=== PATIENT | male | born 1960 | race Caucasian/White ===

== ENCOUNTER 2018-04-15 18:12 | Inpatient (IN) | payer MEDICARE ==
[2018-04-15 18:21] VITALS: BMI 18.9
--- NOTE | 2018-04-15 18:29 | C.PDOC ---
History Of Present Illness 57 y/o male, with history of hyperlipidemia and hyperthyroidism, transferred from [facility] for psychiatric admission. Patient states he was diagnosed with schizophrenia. Patient admits to hearing voices and suicidal ideation. Patient is going through life stressors and denies drug abuse, alcohol abuse, smoking, and no medical problems. <Jc Castillo Jr. - Last Filed: 04/15/18 18:49> <Sierra Sims - Last Filed: 04/15/18 18:27> History Per: Patient History/Exam Limitations: no limitations Onset/Duration Of Symptoms: Days Current Symptoms Are (Timing): Still Present <Jc Castillo Jr. - Last Filed: 04/15/18 18:49> Time Seen by Provider: 04/15/18 18:27 Chief Complaint (Nursing): Psychiatric Evaluation Past Medical History Vital Signs: Last Vital Signs Temp 98.8 F 04/15/18 18:17 Pulse 103 H 04/15/18 18:17 Resp 20 04/15/18 18:17 BP 154/95 H 04/15/18 18:17 Pulse Ox 99 04/15/18 18:17 - Medical History PMH: Anxiety, Depression, Hypercholesterolemia (takes lipitor), Hypothyroidism (takes levothyroxine 50 mcg daily), Schizophrenia Denies: Alzheimer's Disease, Anemia, Arthritis, Asthma, Bipolar Disorder, Bronchitis, Cardia Arrhythmia, CHF, COPD, Crohn's Disease, Dementia, Diverticulitis, Emphysema, Fibromyalgia, Fractures, Gastrointestinal Ulcer, Gall Bladder Disease, HIV, HTN, Hyperthyroidism, Kidney Stones, Migraine, Mitral Valve Prolapse, Osteoporosis, Pancreatitis, Paranoia, Parkinson's Disease, Peripheral Edema, Pneumonia, Post Traumatic Stress Disorder, Chronic Kidney Disease, Seizures, Sickle Cell Disease, Sexually Transmitted Disease, Sleep Apnea, TIA Surgical History: Denies: Appendectomy, Cholecystectomy, Coronary Stent, Pacemaker - [facility] Procedures COLONOSCOPY (08/02/13) GROUP PSYCHOTHERAPY (05/31/16) INDIVIDUAL PSYCHOTHERAPY, SUPPORTIVE (05/31/16) PSYCHIAT DRUG THERAP NEC (07/16/13) Family History: States: Unknown Family Hx - Social History Hx Alcohol Use: No Hx Substance Use: No - Immunization History Hx Tetanus Toxoid Vaccination: Yes Hx Influenza Vaccination: Yes Hx Pneumococcal Vaccination: Yes <Sierra Sims - Last Filed: 04/15/18 18:27> Reviewed: Historical Data, Nursing Documentation, Vital Signs Vital Signs: Last Vital Signs Temp 98.8 F 04/15/18 18:17 Pulse 103 H 04/15/18 18:17 Resp 20 04/15/18 18:17 BP 154/95 H 04/15/18 18:17 Pulse Ox 99 04/15/18 18:29 - [facility] Procedures COLONOSCOPY (08/02/13) GROUP PSYCHOTHERAPY (05/31/16) INDIVIDUAL PSYCHOTHERAPY, SUPPORTIVE (05/31/16) PSYCHIAT DRUG THERAP NEC (07/16/13) Family History: States: No Known Family Hx <Jc Castillo Jr. - Last Filed: 04/15/18 18:49> Review Of Systems Constitutional: Negative for: Fever, Chills Musculoskeletal: Positive for: Neck Pain (neck spasms) Psych: Positive for: Suicidal ideation <Jc Castillo Jr. - Last Filed: 04/15/18 18:49> Physical Exam - Physical Exam Appears: No Acute Distress, Other (Cooperative but tonic) Skin: Warm, Dry Head: Atraumatic, Normacephalic Eye(s): bilateral: Normal Inspection, PERRL, EOMI Oral Mucosa: Moist Neck: Other (Neck spasms) Chest: Symmetrical Cardiovascular: Rhythm Regular, No Murmur Respiratory: Normal Breath Sounds, No Rales, No Rhonchi, No Wheezing Gastrointestinal/Abdominal: Soft, No Tenderness Extremity: Bilateral: Atraumatic, Normal Color And Temperature, Normal ROM Neurological/Psych: Oriented x3 Gait: Steady <Jc Castillo Jr. - Last Filed: 04/15/18 18:49> ED Course And Treatment O2 Sat by Pulse Oximetry: 99 <Sierra Sims - Last Filed: 04/15/18 18:27> O2 Sat by Pulse Oximetry: 99 (RA) Pulse Ox Interpretation: Normal <Jc Castillo Jr. - Last Filed: 04/15/18 18:49> Medical Decision Making Medical Decision Making: Plan: --Ativan <Jc Castillo Jr. - Last Filed: 04/15/18 18:49> Disposition - Disposition Disposition Time: 18:28 - POA Present On Arrival: None <Sierra Sims - Last Filed: 04/15/18 18:27> <Jc Castillo Jr. - Last Filed: 04/15/18 18:49> - Disposition Disposition: HOSPITALIZED Condition: GUARDED - Clinical Impression Clinical Impression: Depression - Scribe Statement The provider has reviewed the documentation as recorded by the Jada Fontenot Provider Attestation: All medical record entries made by the Kaelynibe were at my direction and persona lly dictated by me. I have reviewed the chart and agree that the record accurately reflects my personal performance of the history, physical exam, medical decision making, and the department course for this patient. I have also personally directed, reviewed, and agree with the discharge instructions and disposition. <Jc Castillo Jr. - Last Filed: 04/15/18 18:49> Decision To Admit - Pt Status Changed To: Hospital Disposition Of: Inpatient - Admit Certification Admit to Inpatient:: After my assessment, the patient will require hospitalization for at least two midnights. This is because of the severity of symptoms shown, intensity of services needed, and/or the medical risk in this patient being treated as an outpatient. - InPatient: Physician Admission Certification: I certify that this patient requires 2 or more midnights of care for the following reason:: depression - . Bed Request Type: Psychiatry <Sierra Sims - Last Filed: 04/15/18 18:27> <Jc Castillo Jr. - Last Filed: 04/15/18 18:49> - . Patient Diagnosis: Depression
--- NOTE | 2018-04-15 18:54 | C.PDOC ---
History Of Present Illness 57 y/o male, with history of hyperlipidemia and hyperthyroidism, transferred from [facility] for psychiatric admission. Patient states he was diagnosed with schizophrenia. Patient admits to hearing voices and suicidal ideation. Patient is going through life stressors and denies drug abuse, alcohol abuse, smoking, and no medical problems. Time Seen by Provider: 04/15/18 18:27 Chief Complaint (Nursing): Psychiatric Evaluation History Per: Patient History/Exam Limitations: no limitations Onset/Duration Of Symptoms: Days Current Symptoms Are (Timing): Still Present Past Medical History Reviewed: Historical Data, Nursing Documentation, Vital Signs Vital Signs: Last Vital Signs Temp 98.8 F 04/15/18 18:17 Pulse 103 H 04/15/18 18:17 Resp 20 04/15/18 18: BP 154/95 H 04/15/18 18: Pulse Ox 99 04/15/18 18:17 - Medical History PMH: Anxiety, Bipolar Disorder, Depression, Hypercholesterolemia (takes lipitor), Hypothyroidism (takes levothyroxine 50 mcg daily), Schizophrenia Denies: Alzheimer's Disease, Anemia, Arthritis, Asthma, Bronchitis, Cardia Arrhythmia, CHF, COPD, Crohn's Disease, Dementia, Diverticulitis, Emphysema, Fibromyalgia, Fractures, Gastrointestinal Ulcer, Gall Bladder Disease, HIV, HTN, Hyperthyroidism, Kidney Stones, Migraine, Mitral Valve Prolapse, Osteoporosis, Pancreatitis, Paranoia, Parkinson's Disease, Peripheral Edema, Pneumonia, Post Traumatic Stress Disorder, Chronic Kidney Disease, Seizures, Sickle Cell Disease, Sexually Transmitted Disease, Sleep Apnea, TIA Surgical History: Denies: Appendectomy, Cholecystectomy, Coronary Stent, Pacemaker - [facility] Procedures COLONOSCOPY (08/02/13) GROUP PSYCHOTHERAPY (05/31/16) INDIVIDUAL PSYCHOTHERAPY, SUPPORTIVE (05/31/16) PSYCHIAT DRUG THERAP NEC (07/16/13) Family History: States: No Known Family Hx - Social History Hx Alcohol Use: No Hx Substance Use: No - Immunization History Hx Tetanus Toxoid Vaccination: Yes Hx Influenza Vaccination: Yes Hx Pneumococcal Vaccination: Yes Review Of Systems Except As Marked, All Systems Reviewed And Found Negative. Constitutional: Negative for: Fever, Chills Musculoskeletal: Positive for: Other (Neck spasms) Psych: Positive for: Suicidal ideation Physical Exam - Physical Exam Appears: No Acute Distress, Other (Cooperative but tonic) Skin: Warm, Dry, No Rash Head: Atraumatic, Normacephalic Eye(s): bilateral: Normal Inspection, PERRL, EOMI Oral Mucosa: Moist Neck: Other (Neck spasms) Chest: Symmetrical Cardiovascular: Rhythm Regular, No Murmur Respiratory: Normal Breath Sounds, No Rales, No Rhonchi, No Wheezing Gastrointestinal/Abdominal: Soft, No Tenderness Extremity: Bilateral: Atraumatic, Normal Color And Temperature, Normal ROM Neurological/Psych: Oriented x3 ED Course And Treatment O2 Sat by Pulse Oximetry: 99 (RA) Pulse Ox Interpretation: Normal Medical Decision Making Medical Decision Making: Plan: --Ativan Disposition - Disposition Disposition: HOSPITALIZED Disposition Time: 19:05 Condition: GUARDED - Clinical Impression Clinical Impression: Depression - Scribe Statement The provider has reviewed the documentation as recorded by the Jada Fontenot Provider Attestation: All medical record entries made by the Kaelynibfritz were at my direction and personally dictated by me. I have reviewed the chart and agree that the record accurately reflects my personal performance of the history, physical exam, medical decision making, and the department course for this patient. I have also personally directed, reviewed, and agree with the discharge instructions and disposition.
--- NOTE | 2018-04-15 19:46 | PCM.BM ---
<Teresita Ramirez - Last Filed: 04/15/18 19:43> Treatment Plan Problems - Problems identified on initial assessmt Auditory Hallucinations Date Initiated: 04/15/18 Time Initiated: 19:44 Assessment reference: NA Status: Active dep Date Initiated: 04/15/18 Time Initiated: 19:44 Assessment reference: NA Status: Active Treatment assets and liabiliti Patient Assests: cooperative, insightful, ADL independent, negotiates basic needs, cognitively intact Patient Liabilities: live alone (lives alone), physical pain, poor support system, medical problems (Hypothryoidism, Colitis), auditory impairment - Milieu Protocol Maintain good personal hygiene: daily Encourage regular showers, daily Remind patient to perform daily oral care, daily Assist patient to perform ADL's Conduct patient checks and document Observation sheet: Q15 minutes Maintain personal safety: every shift Educate patient to report safety concerns to staff, every shift Monitor environment for contraband/sharps Medication safety: Monitor for expected outcome, potential side effects: every shift, Assess barriers to learning: every shift, Assess readiness for medication education: every shift <Ann Poe - Last Filed: 04/16/18 12:27> Family Contact Family involvement: Patient does not wish Family/SO involvement Family contact: Patient declines to allow family contact at present - Goals for Treatment Patient goals for treatment: "I want to return to my private psychiatrist." Discharge/Continuing Care - Education Needs Education Needs: Patient Medication, Patient Diagnosis/Disease Process, Patient Coping Skills - Discharge Discharge Criteria: Free of Suicidal thoughts, Normal sleep pattern, Ability to care for self, Reduction of target symptoms Discharge to:: Home - Treatment Team Participation Discussed with Family/SO: No Was Patient/Family/SO present at Treatment Team Meeting: Yes <Elma Orellana - Last Filed: 04/16/18 12:42> - Diagnosis (1) Schizophrenia Status: Acute Interventions: 04/16/18 12:42 * Assess/adjust medications daily and /or as needed * See patient on an individual basis 7x/week to assess status of hallucinations * Discuss risks, benefits, side effects and alternatives of medications *
[2018-04-16] MEDS: Naproxen 550 mg Tab PO SCH ×2 (06:49→19:24)
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
--- NOTE | 2018-04-16 10:11 | PCM.PSYCH ---
Initial Psychiatric Evaluation - Initial Psychiatric Evaluation Type of Admission: Voluntary Legal Status: Capacity Current Medications: Active Medications Generic Name Dose Route Start Last Admin Trade Name Mike PRN Reason Stop Dose Admin Naproxen 550 mg 04/16/18 07:00 04/16/18 06:49 Anaprox Ds PO 550 mg Q12H JASMINA Administration Trazodone HCl 300 mg 04/15/18 22:00 04/15/18 21:29 Desyrel PO 300 mg HS JASMINA Administration Past Psychiatric History - Past Psychiatric History Pertinent Medical Hx (Current Medical&Sleep Prob, Allergies): Allergies Allergy/AdvReac Type Severity Reaction Status Date / Time No Known Allergies Allergy Verified 04/15/18 18:17 Atorvastatin [Lipitor] 20 mg PO DAILY 05/31/16 Benztropine [Benztropine Mesylate] 0.5 mg PO BID 05/31/16 Levothyroxine [Synthroid] 50 mcg PO DAILY 05/31/16 Gabapentin [Neurontin] 300 mg PO TID #90 cap 06/10/16 Famotidine [Pepcid] 20 mg PO DAILY 04/15/18 LORazepam [Ativan] 1 mg PO TID 04/15/18 Mirtazapine [Remeron] 30 mg PO HS 04/15/18 Olanzapine [Zyprexa] 20 mg PO HS 04/15/18 Oxycodone HCl/Acetaminophen [Percocet 7.5-325 mg Tablet] 1 each PO DAILY 04/15/18 Polyethylene Glycol 3350 [Miralax] 17 gm PO Q6H 04/15/18 traZODone [trazODONE HYDROCHLORIDE] 50 mg PO DAILY 04/15/18
[2018-04-16] MEDS: Oxycodone/Acetaminophen 5/325 mg Tab PO PRN ×2 (10:21→16:17)
[2018-04-16] MEDS: Levothyroxine 50 MCG TAB PO SCH (10:40)
[2018-04-17] MEDS: Levothyroxine 50 MCG TAB PO SCH (06:30)
[2018-04-17] MEDS: Naproxen 550 mg Tab PO SCH ×2 (07:43→18:44)
[2018-04-17] MEDS: Oxycodone/Acetaminophen 5/325 mg Tab PO PRN ×2 (09:02→14:52)
--- NOTE | 2018-04-17 10:27 | PCM.PYCHPN ---
Psychiatric Progress Note - Psychiatric Progress Note Patient seen today, length of contact: 15 min Patient Chief Complaint: I was feeling depressed.' Problems Identified/Issues Discussed: Pt was seen and evaluated chart reviewed and discussed with the staff. Patient remained paranoid and depressed. He still reports feelings of hopelessness and helplessness. He still reports of hearing voices. And he still has abnormal movements of the neck. He is taking medication but denies any side effects. Symptoms are improving gradually and he needs to stay longer for further evaluation. Supportive therapy was given Medication Change: Yes Medical Record Reviewed: Yes Mental Status Examination - Cognitive Function Orientation: Person, Place, Situation, Time Memory: Intact Attention: WNL Concentration: Poor Association: WNL Fund of Knowledge: Poor - Mood Mood: Depressed, Anxious - Affect Affect: Constricted, Depressed - Formal Thought Process Formal Thought Process: Hallucinations, Delusions, Paranoia - Suicidal Ideation Suicidal Ideation: No - Homicidal Ideation Homicidal Ideation: No Goal/Treatment Plan - Goal/Treatment Plan Need for Continued Stay: Discharge may exacerbated symptoms, Severe functional impairment Progress Toward Problem(s) and Goals/Treatment Plan: Schizoaffective disorder depressive type -CBT -Psychoeducation -Supportive therapy, group therapy, individual therapy -Trazodone 300 mg p.o. nightly -Olanzapine 20 g p.o. nightly -Remeron 30 mg p.o. nightly -Neurontin 300 mg p.o. 3 times daily -Ativan 1 mg p.o. 3 times daily Tardive dyskinesia of the neck -Continue Ativan- -continue oxycodone as needed -Continue benztropine Hypothyroidism -Continue Synthroid
[2018-04-18] MEDS: Levothyroxine 50 MCG TAB PO SCH (06:33)
[2018-04-18] MEDS: Naproxen 550 mg Tab PO SCH ×3 (07:54→18:55)
[2018-04-18] MEDS: Oxycodone/Acetaminophen 5/325 mg Tab PO PRN ×2 (09:37→20:01)
--- NOTE | 2018-04-18 10:29 | PCM.PYCHPN ---
Psychiatric Progress Note - Psychiatric Progress Note Patient seen today, length of contact: 15 min Patient Chief Complaint: I was feeling depressed and hearing voices to harm myself.' Problems Identified/Issues Discussed: Pt was seen and evaluated chart reviewed and discussed with the staff. He still reports of hearing voices. And he still has abnormal movements of the neck. Patient remained paranoid and depressed. He still reports feelings of hopelessness and helplessness. He is taking medication but denies any side effects. Symptoms are improving gradually and he needs to stay longer for further evaluation. Supportive therapy was given Medication Change: Yes Medical Record Reviewed: Yes Mental Status Examination - Cognitive Function Orientation: Person, Place, Situation, Time Memory: Intact Attention: WNL Concentration: Poor Association: WNL Fund of Knowledge: Poor - Mood Mood: Depressed, Anxious - Affect Affect: Constricted, Depressed - Formal Thought Process Formal Thought Process: Hallucinations, Delusions, Paranoia - Suicidal Ideation Suicidal Ideation: No - Homicidal Ideation Homicidal Ideation: No Goal/Treatment Plan - Goal/Treatment Plan Need for Continued Stay: Discharge may exacerbated symptoms, Severe functional impairment Progress Toward Problem(s) and Goals/Treatment Plan: Schizoaffective disorder depressive type -CBT -Psychoeducation -Supportive therapy, group therapy, individual therapy -Trazodone 300 mg p.o. nightly -Olanzapine 20 g p.o. nightly -Remeron 30 mg p.o. nightly -Neurontin 300 mg p.o. 3 times daily -Ativan 1 mg p.o. 3 times daily Tardive dyskinesia of the neck -Continue Ativan- -continue oxycodone as needed -Continue benztropine Hypothyroidism -Continue Synthroid
[2018-04-19] MEDS: Levothyroxine 50 MCG TAB PO SCH (06:46)
[2018-04-19] MEDS: Naproxen 550 mg Tab PO SCH ×2 (07:57→19:55)
[2018-04-19] MEDS: Oxycodone/Acetaminophen 5/325 mg Tab PO PRN ×2 (09:53→18:00)
[2018-04-20] MEDS: Levothyroxine 50 MCG TAB PO SCH (06:06)
[2018-04-20] MEDS: Naproxen 550 mg Tab PO SCH ×2 (07:56→20:01)
[2018-04-21] MEDS: Levothyroxine 50 MCG TAB PO SCH (06:39)
[2018-04-21] MEDS: Naproxen 550 mg Tab PO SCH ×2 (08:00→19:04)
[2018-04-22] MEDS: Levothyroxine 50 MCG TAB PO SCH (06:39)
[2018-04-22] MEDS: Naproxen 550 mg Tab PO SCH ×2 (07:36→19:40)
[2018-04-23] MEDS: Levothyroxine 50 MCG TAB PO SCH (06:24)
[2018-04-23] MEDS: Naproxen 550 mg Tab PO SCH ×2 (07:41→18:10)
[2018-04-24 06:13] VITALS: O2SAT 97
[2018-04-24] MEDS: Levothyroxine 50 MCG TAB PO SCH (06:27)
[2018-04-24] MEDS: Naproxen 550 mg Tab PO SCH ×2 (08:00→18:50)
[2018-04-25] MEDS: Levothyroxine 50 MCG TAB PO SCH (06:25)
[2018-04-25 06:43] VITALS: RESP 18
[2018-04-25] MEDS: Naproxen 550 mg Tab PO SCH ×2 (08:28→21:33)
--- NOTE | 2018-04-26 00:59 | PCM.PYCHPN ---
Psychiatric Progress Note - Psychiatric Progress Note Patient seen today, length of contact: 15 min Patient Chief Complaint: I am feeling little depressed.' Problems Identified/Issues Discussed: Pt was seen and evaluated chart reviewed and discussed with the staff. Patient remained paranoid and depressed. He still reports feelings of hopelessness and helplessness. He still reports of hearing voices. And he still has abnormal movements of the neck. He is taking medication but denies any side effects. Symptoms are improving gradually and he needs to stay longer for further evaluation. Supportive therapy was given Medication Change: Yes Medical Record Reviewed: Yes Mental Status Examination - Cognitive Function Orientation: Person, Place, Situation, Time Memory: Intact Attention: WNL Concentration: Poor Association: WNL Fund of Knowledge: Poor - Mood Mood: Depressed, Anxious - Affect Affect: Constricted, Depressed - Formal Thought Process Formal Thought Process: Hallucinations, Delusions, Paranoia - Suicidal Ideation Suicidal Ideation: No - Homicidal Ideation Homicidal Ideation: No Goal/Treatment Plan - Goal/Treatment Plan Need for Continued Stay: Discharge may exacerbated symptoms, Severe functional impairment Progress Toward Problem(s) and Goals/Treatment Plan: Schizoaffective disorder depressive type -CBT -Psychoeducation -Supportive therapy, group therapy, individual therapy -Trazodone 300 mg p.o. nightly -Olanzapine 20 g p.o. nightly -Remeron 30 mg p.o. nightly -Neurontin 300 mg p.o. 3 times daily -Ativan 1 mg p.o. 3 times daily Tardive dyskinesia of the neck -Continue Ativan- -continue oxycodone as needed -Continue benztropine Hypothyroidism -Continue Synthroid
[2018-04-26] MEDS: Levothyroxine 50 MCG TAB PO SCH (06:10)
[2018-04-26 06:29] VITALS: BP 117/82; PULSE 75; TEMP 97.5
[2018-04-26] MEDS: Naproxen 550 mg Tab PO SCH (07:51)
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
== END 2018-04-26 12:50 | disposition home or self-care (01) | DRG 885 ==
LOC: C.ER 18:12 → C.5E 18:29
PROC: GZ3ZZZZ Medication Management (ICD-10-PCS; principal; 2018-04-15)
PROC: GZHZZZZ Group Psychotherapy (ICD-10-PCS; 2018-04-15)
PROC: GZ56ZZZ Individual Psychotherapy, Supportive (ICD-10-PCS; 2018-04-15)
DX: F25.1 Schizoaffective disorder, depressive type (principal); R45.851 Suicidal ideations; R44.0 Auditory hallucinations; G24.01 Drug induced subacute dyskinesia; F31.9 Bipolar disorder, unspecified; F41.9 Anxiety disorder, unspecified; E03.9 Hypothyroidism, unspecified; E78.5 Hyperlipidemia, unspecified; E78.00 Pure hypercholesterolemia, unspecified; Z79.890 Hormone replacement therapy

== ENCOUNTER 2018-05-14 00:40 | Inpatient (IN) | payer MEDICARE ==
[2018-05-14 00:40] VITALS: BMI 18.9
--- NOTE | 2018-05-14 00:59 | C.PDOC ---
History Of Present Illness 57 y/o male arrives to the ED via EMS, transferred from [facility] for psychiatric admission. Patient was already evaluated and medically cleared at [facility]. On arrival, he offers no additional complaints. Time Seen by Provider: 05/14/18 00:57 Chief Complaint (Nursing): Psychiatric Evaluation History Per: Patient History/Exam Limitations: no limitations Onset/Duration Of Symptoms: Days Current Symptoms Are (Timing): Still Present Past Medical History Reviewed: Historical Data, Nursing Documentation, Vital Signs Vital Signs: Last Vital Signs Temp 97.9 F 05/14/18 00:44 Pulse 99 H 05/14/18 00:44 Resp 18 05/14/18 00:44 BP 90/60 L 05/14/18 00:44 Pulse Ox 99 05/14/18 00:44 - Medical History PMH: Anxiety, Bipolar Disorder, Depression, Hypercholesterolemia (takes lipitor), Hypothyroidism (takes levothyroxine 50 mcg daily), Schizophrenia Denies: Alzheimer's Disease, Anemia, Arthritis, Asthma, Bronchitis, Cardia Arrhythmia, CHF, COPD, Crohn's Disease, Dementia, Diverticulitis, Emphysema, Fibromyalgia, Fractures, Gastrointestinal Ulcer, Gall Bladder Disease, HIV, HTN, Hyperthyroidism, Kidney Stones, Migraine, Mitral Valve Prolapse, Osteoporosis, Pancreatitis, Paranoia, Parkinson's Disease, Peripheral Edema, Pneumonia, Post Traumatic Stress Disorder, Chronic Kidney Disease, Seizures, Sickle Cell Disease, Sexually Transmitted Disease, Sleep Apnea, TIA Surgical History: Denies: Appendectomy, Cholecystectomy, Coronary Stent, Pacemaker - [facility] Procedures COLONOSCOPY (08/02/13) GROUP PSYCHOTHERAPY (04/15/18) INDIVIDUAL PSYCHOTHERAPY, SUPPORTIVE (04/15/18) MEDICATION MANAGEMENT (04/15/18) PSYCHIAT DRUG THERAP NEC (07/16/13) Family History: States: No Known Family Hx - Social History Hx Alcohol Use: No Hx Substance Use: No - Immunization History Hx Tetanus Toxoid Vaccination: Yes Hx Influenza Vaccination: Yes Hx Pneumococcal Vaccination: Yes Review Of Systems Constitutional: Negative for: Fever Cardiovascular: Negative for: Chest Pain Respiratory: Negative for: Shortness of Breath Gastrointestinal: Negative for: Vomiting Neurological: Negative for: Weakness, Numbness Psych: Positive for: Other (Hearing voices). Negative for: Suicidal ideation Physical Exam - Physical Exam Appears: Non-toxic, No Acute Distress Skin: Normal Color Head: Normacephalic Eye(s): bilateral: Normal Inspection Neck: Normal ROM Chest: Symmetrical Respiratory: No Accessory Muscle Use, Other (No respiratory distress) Extremity: Bilateral: Atraumatic, Other (moving all extremities) Neurological/Psych: Oriented x3 ED Course And Treatment O2 Sat by Pulse Oximetry: 99 (RA) Pulse Ox Interpretation: Normal Progress Note: Patient already cleared and accepted to psychiatric unit. Admission orders placed. Disposition Discussed With Dr.: Brayan Aquino Doctor Will See Patient In The: Hospital Counseled Patient/Family Regarding: Diagnosis - Disposition Disposition: HOSPITALIZED Disposition Time: 01:08 Condition: STABLE Forms: [employer] ([employer]) - POA Present On Arrival: None - Clinical Impression Clinical Impression: Schizophrenia - Scribe Statement The provider has reviewed the documentation as recorded by the Jada Waggoner Provider Attestation: All medical record entries made by the Kaelynibfritz were at my direction and personally dictated by me. I have reviewed the chart and agree that the record accurately reflects my personal performance of the history, physical exam, medical decision making, and the department course for this patient. I have also personally directed, reviewed, and agree with the discharge instructions and disposition.
--- NOTE | 2018-05-14 04:16 | PCM.BM ---
<Darrion Johnson - Last Filed: 05/14/18 04:13> Treatment Plan Problems - Problems identified on initial assessmt Command/Auditory Hallucinations Date Initiated: 05/14/18 Time Initiated: 02:30 Assessment reference: NA Status: Monitor Altered Thought Process Date Initiated: 05/14/18 Time Initiated: 02:30 Assessment reference: NA Status: Active Treatment assets and liabiliti Patient Assests: cooperative, insightful, ADL independent, negotiates basic n eeds, cognitively intact - Milieu Protocol Maintain good personal hygiene: daily Encourage regular showers, daily Remind patient to perform daily oral care, daily Assist patient to perform ADL's Conduct patient checks and document Observation sheet: Q15 minutes Maintain personal safety: every shift Educate patient to report safety concerns to staff, every shift Monitor environment for contraband/sharps Medication safety: Monitor for expected outcome, potential side effects: every s hift, Assess barriers to learning: every shift, Assess readiness for medication education: every shift <Elma Orellana - Last Filed: 05/14/18 11:25> - Diagnosis (1) Schizophrenia Status: Acute Interventions: 05/14/18 11:26 * Assess/adjust medications daily and /or as needed * See patient on an individual basis 7x/week to assess status of hallucinations * Discuss risks, benefits, side effects and alternatives of medications * <Ann Poe - Last Filed: 05/14/18 11:57> Family Contact Family involvement: Patient does not wish Family/SO involvement Family contact: Patient declines to allow family contact at present - Goals for Treatment Patient goals for treatment: "I want to return to my psychiatrist." Discharge/Continuing Care - Education Needs Education Needs: Patient Medication, Patient Diagnosis/Disease Process, Patient Coping Skills, Patient Placement options, Patient Community resources - Discharge Discharge Criteria: Free of Suicidal thoughts, Normal sleep pattern, Ability to care for self, Reduction of target symptoms Discharge to:: Home - Treatment Team Participation Discussed with Family/SO: No Was Patient/Family/SO present at Treatment Team Meeting: Yes
[2018-05-14] MEDS: Levothyroxine 50 MCG TAB PO SCH (06:17)
--- NOTE | 2018-05-14 09:53 | PCM.PSYCH ---
Initial Psychiatric Evaluation - Initial Psychiatric Evaluation Type of Admission: Voluntary Legal Status: Capacity Chief Complaint (in patient's own words): I started hearing voices.' History of Present Illness and Precipitating Events: This is a 57 y/o male who was transferred from [facility] for AH telling him to kill himself. Patient has history of multiple inpatient psychiatric admissions. He was just recently discharged home [facility] last month. Patient reports that he stopped taking his medications and did not follow-up with any psychiatrist. He reports that he started hearing voices telling him to kill himself and he started seeing things. As per the patient he got concerned and came to the hospital to get help. Yesterday he was transferred to [facility] for the continuation of care. Patient appears somewhat disorganized and internally preoccupied. He reports of hearing voices, auditory hallucinations command type, telling him to kill himself. He also reports of seeing shadows. He reports depressed mood, at times feelings of hopelessness and helplessness, poor sleep and poor appetite. He reports irritability and agitation but denies any racing thoughts. He denies any drinking or any substance abuse. PMH: Hyperlipidemia, Hypothyroidism, tardive dyskinesia, Colitis Current Medications: Active Medications Generic Name Dose Route Start Last Admin Trade Name Freq PRN Reason Stop Dose Admin Levothyroxine Sodium 50 mcg 05/14/18 06:30 05/14/18 06:17 Synthroid PO 50 mcg DAILY@0630 FOR[facility] Administration Past Psychiatric History - Past Psychiatric History Previous Treatment History: Inpatient Pertinent Medical Hx (Current Medical&Sleep Prob, Allergies): Allergies Allergy/AdvReac Type Severity Reaction Status Date / Time No Known Allergies Allergy Verified 04/15/18 18:17 Gabapentin [Neurontin] 300 mg PO TID #90 cap 06/10/16 LORazepam [Ativan] 1 mg PO TID 04/15/18 Oxycodone HCl/Acetaminophen [Percocet 7.5-325 mg Tablet] 1 each PO DAILY 04/15/18 traZODone [trazODONE HYDROCHLORIDE] 50 mg PO DAILY 04/15/18 Atorvastatin [Lipitor] 20 mg PO DAILY #30 tab 04/26/18 Benztropine [Cogentin] 1 mg PO BID #60 tab 04/26/18 Cyclobenzaprine [Flexeril] 10 mg PO TID #90 tab 04/26/18 Mirtazapine [Remeron] 30 mg PO HS #30 tab 04/26/18 Olanzapine [Zyprexa] 20 mg PO HS #30 tablet 04/26/18 traZODone [Desyrel] 100 mg PO HS #60 tab 04/26/18 Review of Systems - Review of Systems All systems: reviewed and no additional remarkable complaints except - Psychiatric Psychiatric: Anxiety, Auditory Hallucinations, Irritability, Paranoia, Suicidal Ideation Mental Status Examination - Personal Presentation Personal Presentation: Looks stated age - Affect Affect: Constricted - Motor Activity Motor Activity: Psychomotor Agitation - Reliability in Providing Information Reliability in Providing Information: Poor, due to alteration in thoughts - Speech Speech: Organized - Mood Mood: Depressed, Anxious - Formal Thought Process Formal Thought Process: Hallucinations, Delusions, Paranoia, Loosening of associations - Hallucinations/Delusions Hallucinations: Auditory Delusions: Persecution - Obsessions/Compulsions Obsessions: No Compulsions: No - Cognitive Functions Orientation: Person, Place, Situation, Time Sensorium: Alert Attention/Concentration: Attentive Abstract Thinking: Elizabeth Estimate of Intelligence: Below average Judgement: Imparied, as evidence by: Poor judgement, Imparied, as evidence by: Lack of insight into illness - Risk Risk: Suicidal, Diminished functioning - Limitations Limitations: Living alone DSM 5 DX - DSM 5 DSM 5 Diagnosis: Schizophrenia paranoid type continues - Recommended/Plan of Treatment Treatment Recommendations and Plan of Treatment: Schizophrenia paranoid type continues CBT Psychology Supportive therapy and group therapy Olanzapine 10 mg Neurontin 300 mg TID Mirtazapine 30 mg Trazodone 50 mg
[2018-05-15] MEDS: Levothyroxine 50 MCG TAB PO SCH (06:28)
[2018-05-15 06:55] VITALS: O2SAT 96
[2018-05-16] MEDS: Levothyroxine 50 MCG TAB PO SCH (06:31)
--- NOTE | 2018-05-16 08:45 | PCM.PYCHPN ---
Psychiatric Progress Note - Psychiatric Progress Note Patient seen today, length of contact: 15 min Patient Chief Complaint: I started hearing voices.' Problems Identified/Issues Discussed: Patient seen in neurology, chart reviewed and discussed with staff. Patient reports of paranoia and auditory hallucinations. He still reports of involuntary neck movements and reports pain and irritability. He reports depressed mood, at times feelings of hopelessness and helplessness. He is taking medication and denies any side effects. Supportive therapy was given Medication Change: Yes Medical Record Reviewed: Yes Mental Status Examination - Cognitive Function Orientation: Person, Place, Situation, Time Memory: Intact Attention: WNL Concentration: Poor Association: WNL Fund of Knowledge: Poor - Mood Mood: Depressed, Anxious - Affect Affect: Constricted - Speech Speech: Soft - Formal Thought Process Formal Thought Process: Hallucinations, Delusions, Paranoia, Loosening of associations - Suicidal Ideation Suicidal Ideation: No - Homicidal Ideation Homicidal Ideation: No Goal/Treatment Plan - Goal/Treatment Plan Need for Continued Stay: Severe depression anxiety, Severe functional impairment Progress Toward Problem(s) and Goals/Treatment Plan: Schizophrenia paranoid type continues CBT Psychology Supportive therapy and group therapy Olanzapine 10 mg Neurontin 300 mg TID Mirtazapine 30 mg Trazodone 50 mg
[2018-05-17] MEDS: Levothyroxine 50 MCG TAB PO SCH (06:32)
--- NOTE | 2018-05-17 14:44 | PCM.PYCHPN ---
Psychiatric Progress Note - Psychiatric Progress Note Patient seen today, length of contact: 15 min Patient Chief Complaint: I started hearing voices.' Problems Identified/Issues Discussed: Patient seen in neurology, chart reviewed and discussed with staff. Per staff, patient still presents with abnormal leg movements, and he is still asking for Ativan and muscle relaxers. Patient reports of paranoia and auditory hallucinations. He still reports pain and irritability, due to abnormal neck movements. He reports depressed mood, at times feelings of hopelessness and helplessness. He is taking medication and denies any side effects. Supportive therapy was given Medication Change: Yes Medical Record Reviewed: Yes Mental Status Examination - Cognitive Function Orientation: Person, Place, Situation, Time Memory: Intact Attention: WNL Concentration: Poor Association: WNL Fund of Knowledge: Poor - Mood Mood: Depressed, Anxious - Affect Affect: Constricted - Speech Speech: Soft - Formal Thought Process Formal Thought Process: Hallucinations, Delusions, Paranoia, Loosening of associations - Suicidal Ideation Suicidal Ideation: No - Homicidal Ideation Homicidal Ideation: No Goal/Treatment Plan - Goal/Treatment Plan Need for Continued Stay: Severe depression anxiety, Severe functional impairment Progress Toward Problem(s) and Goals/Treatment Plan: Schizophrenia paranoid type continues CBT Psychology Supportive therapy and group therapy Olanzapine 10 mg PO BID Neurontin 400 mg TID Mirtazapine 30 mg Trazodone 50 mg
[2018-05-18] MEDS: Levothyroxine 50 MCG TAB PO SCH (07:03)
--- NOTE | 2018-05-18 10:59 | PCM.PYCHPN ---
Psychiatric Progress Note - Psychiatric Progress Note Patient seen today, length of contact: 15 min Patient Chief Complaint: I started hearing voices.' Problems Identified/Issues Discussed: Patient seen and evaluated, chart reviewed and discussed with staff. Per staff, patient still presents with abnormal neck movements, and he is still asking for Ativan and muscle relaxers. Patient appears more organized and less paranoid than before. He also reports some improvement and reports improvement in the feelings of hopelessness and helplessness. He is taking medication but denies any side effects. Symptoms are improving gradually and he needs to stay longer for further evaluation. Supportive therapy was given Medication Change: Yes Medical Record Reviewed: Yes Mental Status Examination - Cognitive Function Orientation: Person, Place, Situation, Time Memory: Intact Attention: WNL Concentration: Poor Association: WNL Fund of Knowledge: Poor - Mood Mood: Depressed, Anxious - Affect Affect: Constricted - Speech Speech: Soft - Formal Thought Process Formal Thought Process: Hallucinations, Delusions, Paranoia, Loosening of associations - Suicidal Ideation Suicidal Ideation: No - Homicidal Ideation Homicidal Ideation: No Goal/Treatment Plan - Goal/Treatment Plan Need for Continued Stay: Severe depression anxiety, Severe functional impairment Progress Toward Problem(s) and Goals/Treatment Plan: Schizophrenia paranoid type continues CBT Psychology Supportive therapy and group therapy Olanzapine 10 mg PO BID Neurontin 400 mg TID Mirtazapine 30 mg Trazodone 50 mg
[2018-05-19] MEDS: Levothyroxine 50 MCG TAB PO SCH (06:22)
[2018-05-20] MEDS: Levothyroxine 50 MCG TAB PO SCH (06:36)
--- NOTE | 2018-05-20 23:18 | PCM.PYCHPN ---
Psychiatric Progress Note - Psychiatric Progress Note Patient seen today, length of contact: 15 min Patient Chief Complaint: "Depressed" Problems Identified/Issues Discussed: The pt is seen, chart reviewed, case is discussed with staff. The pt is compliant with medications and reports no side-effects. Symptoms are improving but needs more time to stabilize and to avoid relapse. Pt attends groups and activities. Support given, psycho-education provided. After care discussed. Medication Change: Yes Medical Record Reviewed: Yes Mental Status Examination - Cognitive Function Orientation: Person, Place, Situation, Time Memory: Intact Attention: WNL Concentration: Poor Association: WNL Fund of Knowledge: Poor - Mood Mood: Depressed, Anxious - Affect Affect: Constricted - Speech Speech: Soft - Formal Thought Process Formal Thought Process: Paranoia - Suicidal Ideation Suicidal Ideation: No - Homicidal Ideation Homicidal Ideation: No Goal/Treatment Plan - Goal/Treatment Plan Need for Continued Stay: Severe depression anxiety, Severe functional impairment Progress Toward Problem(s) and Goals/Treatment Plan: Continue medications Support and psychoeducation daily Attend groups and activities daily Individual therapy After care planning by GAMALIEL and the team
[2018-05-21 06:13] VITALS: RESP 18
[2018-05-21] MEDS: Levothyroxine 50 MCG TAB PO SCH (06:27)
--- NOTE | 2018-05-21 10:40 | PCM.BM ---
<Ann Poe - Last Filed: 05/21/18 10:40> Treatment Plan Problems - Problems identified on initial assessmt Command/Auditory Hallucinations Date Initiated: 05/14/18 Time Initiated: 02:30 Assessment reference: NA Status: Monitor Altered Thought Process Date Initiated: 05/14/18 Time Initiated: 02:30 Assessment reference: NA Status: Active Treatment assets and liabiliti Patient Assests: cooperative, insightful, ADL independent, negotiates basic needs, cognitively intact - Milieu Protocol Maintain good personal hygiene: daily Encourage regular showers, daily Remind patient to perform daily oral care, daily Assist patient to perform ADL's Conduct patient checks and document Observation sheet: Q15 minutes Maintain personal safety: every shift Educate patient to report safety concerns to staff, every shift Monitor environment for contraband/sharps Medication safety: Monitor for expected outcome, potential side effects: every shift, Assess barriers to learning: every shift, Assess readiness for medication education: every shift Milieu Narrative: Continue medications Support and psychoeducation daily Attend groups and activities daily Individual therapy After care planning by SW and the team Family Contact Family involvement: Patient does not wish Family/SO involvement Family contact: Patient declines to allow family contact at present - Goals for Treatment Patient goals for treatment: "I want to return to my psychiatrist." Discharge/Continuing Care - Education Needs Education Needs: Patient Medication, Patient Diagnosis/Disease Process, Patient Coping Skills, Patient Placement options, Patient Community resources - Discharge Discharge Criteria: Free of Suicidal thoughts, Normal sleep pattern, Ability to care for self, Reduction of target symptoms Discharge to:: Home - Treatment Team Participation Patient/Family/SO Statement: Continue medications Support and psychoeducation daily Attend groups and activities daily Individual therapy After care planning by SW and the team Discussed with Family/SO: No Was Patient/Family/SO present at Treatment Team Meeting: Yes Treatment Plan Review - Problem Command/Auditory Hallucinations Time Initiated: 02:30 Altered Thought Process Time Initiated: 02:30 - Discharge / Continuing Care Discharge to:: Home Behavioral Health Services: Outpatient therapy Health Needs: Follow up care/test, Medications/Rx <Elma Orellana - Last Filed: 05/22/18 10:05> - Diagnosis (1) Schizophrenia Status: Acute Interventions: 05/22/18 10:05 * Assess/adjust medications daily and /or as needed * See patient on an individual basis 7x/week to assess status of hallucinations * Discuss risks, benefits, side effects and alternatives of medications *
[2018-05-21 16:05] VITALS: PULSE 96
--- NOTE | 2018-05-21 23:59 | PCM.PYCHPN ---
Psychiatric Progress Note - Psychiatric Progress Note Patient seen today, length of contact: 15 min Patient Chief Complaint: I am feeling better.' Problems Identified/Issues Discussed: Patient seen and evaluated, chart reviewed and discussed with staff. Per staff, patient still presents with abnormal neck movements, and he is still asking for Ativan and muscle relaxers. Patient appears more organized and less paranoid than before. He also reports some improvement and reports improvement in the feelings of hopelessness and helplessness. He is taking medication but denies any side effects. Symptoms are improving gradually and he needs to stay longer for further evaluation. Supportive therapy was given Medication Change: Yes Medical Record Reviewed: Yes Mental Status Examination - Cognitive Function Orientation: Person, Place, Situation, Time Memory: Intact Attention: WNL Concentration: Poor Association: WNL Fund of Knowledge: Poor - Mood Mood: Depressed, Anxious - Affect Affect: Constricted - Speech Speech: Soft - Formal Thought Process Formal Thought Process: Paranoia - Suicidal Ideation Suicidal Ideation: No - Homicidal Ideation Homicidal Ideation: No Goal/Treatment Plan - Goal/Treatment Plan Need for Continued Stay: Severe depression anxiety, Severe functional impairment Progress Toward Problem(s) and Goals/Treatment Plan: Schizophrenia paranoid type continues CBT Psychology Supportive therapy and group therapy Olanzapine 10 mg PO BID Neurontin 400 mg TID Mirtazapine 30 mg Trazodone 50 mg
[2018-05-22] MEDS: Levothyroxine 50 MCG TAB PO SCH (06:39)
[2018-05-22 06:46] VITALS: BP 126/88; TEMP 98.3
--- NOTE | 2018-05-23 00:26 | PCM.PYCHDC ---
Mental Status Examination - Mental Status Examination Orientation: Person, Place, Situation, Time Memory: Intact Mood: Neutral Affect: Constricted Speech: Soft Attention: WNL Concentration: WNL Association: WNL Fund of Knowledge: WNL Formal Thought Process: No Impairment Description of patient's judgement and insight: good, fair Psychotic Thoughts and Behaviors: denies any AVH Suicidal Ideation: No Current Homicidal Ideation?: No Discharge Summary - Discharge Note Reason for Hospitalization: This is a 57 y/o male who was transferred from [facility] for AH telling him to kill himself. Patient has history of multiple inpatient psychiatric admissions. He was just recently discharged home [facility] last month. Patient reports that he stopped taking his medications and did not follow-up with any psychiatrist. He reports that he started hearing voices telling him to kill himself and he started seeing things. As per the patient he got concerned and came to the hospital to get help. Yesterday he was transferred to [facility] for the continuation of care. Patient appears somewhat disorganized and internally preoccupied. He reports of hearing voices, auditory hallucinations command type, telling him to kill himself. He also reports of seeing shadows. He reports depressed mood, at times feelings of hopelessness and helplessness, poor sleep and poor appetite. He reports irritability and agitation but denies any racing thoughts. He denies any drinking or any substance abuse. Consultations:: List each consultation separately and include: 1. Reason for request. 2. Findings. 3. Follow-up Summary of Hospital Course include:: 1. Description of specific treatment plan utilized for patients during their course of treatmen. 2. Summarize the time- course for resolution of acute symptoms and/or regressed behaviors. 3. Describe issues identified and worked on during hospitalization. 4. Describe medication utilized. 5. Describe medical problems identified and treated. 6. Reassessment of suicide risk Summary of Hospital Course: During the course of his stay, patient (pt) started progressively improving and no longer remained irritable, depressed, and suicidal. Neurontin, Olanzapine and trazodone were started and pt showed a very good response. His mood and anxiety were improved and he started attending groups and meetings and started socializing. Patient denied any feelings of hopelessness, helplessness, and worthlessness, denied any problem with the sleep or appetite, denied suicidal ideation or homicidal ideation. Pt denied any auditory or visual hallucinations. He denied any withdrawal symptoms. Pt was treated with medications along with supportive therapy, milieu therapy and group therapy. Some changes were made in his current medications and patient was discharged on following medications. He tolerated these medications very well and denied any side effects. - Diagnosis (1) Schizophrenia Status: Acute - Final Diagnosis (DSM 5) Condition upon Discharge: STABLE DSM 5: Schizophrenia paranoid type continues Disposition: HOME/ ROUTINE Follow-up Treatment Plan: Followup: Patient is to follow-up with his psychiatrist, Dr. Tyler Correa for treatment. Dr. Tyler Correa Address: [address] [place] [id number] Education: Pt was educated and counseled about the risks and benefits of taking and not taking medications. Pt was educated and counseled about the risks of drinking and abusing drugs. Pt was educated and counseled to go to the ER or call 911 if pt develop suicidal ideation or homicidal ideation, worsening of symptoms or severe side effects of the meds. Prescriptions/Medication Reconciliation: Benztropine [Cogentin] 1 mg PO BID #60 tab Cyclobenzaprine [Flexeril] 10 mg PO TID #90 tab Gabapentin [Neurontin] 400 mg PO TID #90 cap Mirtazapine [Remeron] 30 mg PO HS #30 tab Olanzapine [Zyprexa] 20 mg PO HS #30 tablet traZODone [Desyrel] 100 mg PO HS #30 tab - Smoking Cessation Smoking Cessation Medication prescribed: No - Antipsychotic Medications Pt discharged on 2 or more routine antipsychotic medications: No
== END 2018-05-22 12:59 | disposition home or self-care (01) | DRG 885 ==
LOC: C.ER 00:40 → C.5E 01:08
PROC: GZHZZZZ Group Psychotherapy (ICD-10-PCS; principal; 2018-05-14)
PROC: GZ58ZZZ Individual Psychotherapy, Cognitive-Behavioral (ICD-10-PCS; 2018-05-14)
PROC: GZ56ZZZ Individual Psychotherapy, Supportive (ICD-10-PCS; 2018-05-14)
DX: F20.0 Paranoid schizophrenia (principal); R45.851 Suicidal ideations; F31.9 Bipolar disorder, unspecified; E78.00 Pure hypercholesterolemia, unspecified; E03.9 Hypothyroidism, unspecified; F41.8 Other specified anxiety disorders